=== PATIENT | female | born 2005 | race Two or more races ===

== ENCOUNTER 2024-10-27 13:39 | Emergency (ER) | payer OTHER ==
[~2024-10-27] VITALS: Ht 157.5 cm; Wt 66.7 kg
== END 2024-10-27 15:55 | disposition home or self-care (01) ==
LOC: ER 14:18
DX: T16.2XXA Foreign body in left ear, initial encounter (principal); X58.XXXA Exposure to other specified factors, initial encounter; Y93.89 Activity, other specified; Y92.89 Other specified places as the place of occurrence of the external cause; Y99.9 Unspecified external cause status; Z88.0 Allergy status to penicillin